=== PATIENT | male | born 1955 | race Caucasian/White ===

== ENCOUNTER 2018-03-16 02:44 | Emergency (ER) | payer BC ==
[2018-03-16] MEDS ORDERED: MULTIPLE VITAMIN 10 ML VIAL ONE (02:49)
--- NOTE | 2018-03-16 02:49 | ED.PDOC ---
History of Present Illness - General Source: EMS Exam Limitations: intoxication - History of Present Illness Initial Comments: Mick Reed 62 y/o male brought by ems after he was found intoxicated and unable to wake after a drinking spree with friends jo.[email or web address] stated friends called up 911 and they just left him on the dock no ID. Timing/Duration: 1-3 hours Severity: moderate Improving Factors: nothing Worsening Factors: other - see hpi Associated Symptoms: other - drunk - General Chief Complaint: General Stated Complaint: intoxicated Time Seen by Provider: 03/16/18 02:48 - History of Present Illness Allergies/Adverse Reactions: Allergies UNOBTAINABLE Allergy (Verified 03/16/18 02:55) Review of Systems - Review of Systems Unable to Obtain Due To: condition, other - intoxicated Past Medical History (General) - Patient Medical History Hx Hypertension: Yes Hx Diabetes: Yes Family Medical History - Family History Father Family History: Unknown Physical Exam - Physical Exam General Appearance: Lethargic, Other - somnolent,opens eyes with rubbing legs Eye Exam: bilateral normal Neck: supple, normal inspection Respiratory: lungs clear, normal breath sounds Cardiovascular/Chest: normal peripheral pulses, regular rate, rhythm, no murmur Gastrointestinal/Abdominal: non tender, soft, no organomegaly Back Exam: normal inspection Extremity: no pedal edema, no calf tenderness Neurologic: other - somnolent;negative babinski Skin Exam: normal color, warm/dry, other - no signs of external physical injuries Lymphatic: no adenopathy Progress - Progress Progress: 03/16/18 03:25 Vital Signs - 8 hr 03/16/18 03:20 Temperature 98.5 F Pulse Rate [ 83 left] Respiratory 12 Rate Blood Pressure 130/78 [right] O2 Sat by Pulse 88 L Oximetry 03/16/18 03:33 Residual urine after manzo cath-1,750 ml. Departure - Departure Time of Disposition: 07:38 - Departure Clinical Impression: Dehydration Type II diabetes mellitus Qualifiers: Diabetes mellitus complication status: without complication Diabetes mellitus care home insulin use: without salvage determiner use Qualified Code(s): E11.9 - Type 2 diabetes mellitus without complications Alcohol intoxication Qualifiers: Complication of substance-induced condition: uncomplicated Qualified Code(s): F10.920 - Alcohol use, unspecified with intoxication, uncomplicated Disposition: Discharge to Home or Self Care Condition: Good Departure Forms: ED Discharge - Pt. Copy, Patient Portal Self Enrollment
[2018-03-16] MEDS ORDERED: SODIUM CHLORIDE 0.9% 1000ML 1,000 ML ONE (02:50)
[2018-03-16] MEDS ORDERED: THIAMINE HCL INJ 100 MG/ML VIAL ONE (02:51)
[2018-03-16] MEDS ORDERED: MULTIPLE VITAMIN INJ 10 ML, THIAMINE HCL INJ 100 MG in SODIUM CHLORIDE 0.9% 1000ML 1,00... IVS ONE (02:55)
[2018-03-16 03:21] VITALS: TEMP 98.5
[2018-03-16] MEDS ORDERED: SODIUM CHLORIDE 0.9% 1000ML 1,000 ML IVS PRN (05:32)
[2018-03-16 07:07] VITALS: BP 104/69; O2SAT 97
== END 2018-03-16 10:15 | disposition home or self-care (01) ==
LOC: ER 02:44
DX: F10.920 Alcohol use, unspecified with intoxication, uncomplicated (principal); Y90.8 Blood alcohol level of 240 mg/100 ml or more; I10 Essential (primary) hypertension; E11.9 Type 2 diabetes mellitus without complications; E86.0 Dehydration
CPT/HCPCS: 36415; 36416; 80048; 80076; 80307; 80320; 81001; 82550; 82553; 82948; 84484; 85025; 85610; 85730; J3411; J7030